=== PATIENT | male | born 1990 | race Caucasian/White ===

== ENCOUNTER 2018-12-04 08:23 | Emergency (ER) | payer SELFPAY ==
[2018-12-04 09:12] LABS: Absolute Lymphocytes (CBC) 1.2 K/uL (0.7-4.9); Eosinophils % 4.4 % (0-4.4); Hematocrit 41.8 % (39.6-49.0); Lymphocytes % 23.2 % (15.3-44.8); MPV 8.1 fL (7.6-11.3); Monocytes % 6.1 % (3.3-12.3); RBC Red Blood Cell Count 4.47 M/uL (4.33-5.43)
[2018-12-04 09:30] LABS: ALT/SGPT 29 U/L (12-78); AST/SGOT 22 U/L (15-37); Albumin 3.9 g/dL (3.4-5.0); Alkaline Phosphatase 61 U/L (45-117); BUN Blood Urea Nitrogen 9 mg/dL (7-18); Bicarbonate 28 mmol/L (21-32); Bilirubin Direct < 0.1 mg/dL (0-0.2); Bilirubin Total 0.2 mg/dL (0.2-1.0); Glucose Level 84 mg/dL (74-106); Lipase 218 U/L (73-393); Potassium 3.7 mmol/L (3.5-5.1); Protein, Total 7.1 g/dL (6.4-8.2); Sodium Level 140 mmol/L (136-145)
[2018-12-04 10:24] LABS: Urine Blood NEGATIVE (NEG); Urine Glucose NEGATIVE (NEG); Urine Protein TRACE (NEG); Urine Specific Gravity 1.025 (1.005-1.030)
--- NOTE | 2018-12-04 11:16 | RAD REPORT ---
EXAM DESCRIPTION: US - Abdomen Exam Limited - 12/04/2018 11:09 am CLINICAL HISTORY: Abdominal pain, epigastric pain COMPARISON: None. FINDINGS: No gallstones, sludge or other abnormalities within the gallbladder lumen. There is no wal l thickening or pericholecystic fluid. Gallbladder appears to be partially contracted. Fasting status of the patient is not known. No common duct stone or biliary tree dilatation identified. IMPRESSION: No gallbladder or biliary tree abnormality identifiable. Gallbladder appears partially contracted. Fasting status of the patient is not known.
--- NOTE | 2018-12-04 12:24 | EDPHYS ---
Physician Documentation [facility] Name: Andi Hernandez Age: 28 yrs Sex: Male : 1990 Arrival Date: 12/04/2018 Time: 08:26 Bed 19 Private MD: ED Physician Fidel Avalos HPI: 12/04 09:00 This 28 yrs old Male presents to ER via Ambulatory with complaints of cp Abdominal Pain, Vomiting/Diarrhea. 09:00 The patient presents with diarrhea. cp 09:00 Onset: The symptoms/episode began/occurred 3 week(s) ago. The symptoms do not radiate. cp Associated signs and symptoms: Pertinent negatives:. The symptoms are described as crampy, intermittent. Severity of pain: in the emergency department the pain has improved markedly. Historical: - Allergies: 08:46 No Known Allergies; ss - Home Meds: 08:46 None [Active]; ss - PMHx: 08:46 ear infections; fractured pelvic ring; Head injury; ss - PSHx: 08:46 hip sx; ss - Immunization history:: Adult Immunizations unknown. - Social history:: Smoking status: Patient uses tobacco products, smokes one pack cigarettes per day. - Ebola Screening: : Patient denies exposure to infectious person Patient denies travel to an Ebola-affected area in the 21 days before illness onset. ROS: 09:05 Constitutional: Negative for body aches, chills, fever, poor PO intake, weight loss. cp 09:05 Eyes: Negative for injury, pain, redness, and discharge. cp 09:05 ENT: Negative for drainage from ear(s), ear pain, sore throat, difficulty swallowing, difficulty handling secretions. 09:05 Cardiovascular: Negative for chest pain, edema, palpitations. 09:05 Respiratory: Negative for cough, shortness of breath, wheezing. 09:05 Abdomen/GI: Positive for diarrhea, Negative for nausea and vomiting, constipation, anorexia, black/tarry stool, rectal bleeding. 09:05 Back: Negative for pain at rest, pain with movement. 09:05 : Negative for urinary symptoms, testicular pain 09:05 Skin: Negative for cellulitis, rash. 09:05 Neuro: Negative for altered mental status, dizziness, headache, weakness. 09:05 All other systems are negative. Exam: 09:15 Head/Face: Normocephalic, atraumatic. cp 09:15 Constitutional: The patient appears in no acute distress, alert, awake, non-diaphoretic, non-toxic, well developed, well nourished. 09:15 Eyes: Periorbital structures: appear normal, Conjunctiva: normal, no exudate, no cp injection, Sclera: no appreciated abnormality, Lids and lashes: appear normal, bilaterally. 09:15 ENT: External ear(s): are unremarkable, Ear canal(s): are normal, clear, TM's: bulging, is not appreciated, bilaterally, dullness, bilaterally, erythema, is not appreciated, bilaterally, Nose: is normal, Mouth: Lips: moist, Oral mucosa: pink and intact, moist, Posterior pharynx: is normal, airway is patent, no erythema, no exudate. 09:15 Neck: ROM/movement: is normal, is supple, without pain, no range of motions limitations, no nuchal rigidity. 09:15 Chest/axilla: Inspection: normal, Palpation: is normal, no crepitus, no tenderness. 09:15 Cardiovascular: Rate: normal, Rhythm: regular. 09:15 Respiratory: the patient does not display signs of respiratory distress, Respirations: normal, no use of accessory muscles, no retractions, no splinting, no tachypnea, labored breathing, is not present, Breath sounds: are clear throughout, no decreased breath sounds, no stridor, no wheezing. 09:15 Abdomen/GI: Inspection: abdomen appears normal, Bowel sounds: active, all quadrants, Palpation: soft, in all quadrants, mild abdominal tenderness, in the epigastric area and right upper quadrant, rebound tenderness, is not appreciated, voluntary guarding, is not appreciated, involuntary guarding, is not appreciated. 09:15 Back: pain, is absent, ROM is normal. 09:15 Skin: no rash present. 09:15 Neuro: Orientation: to person, place \T\ time. Vital Signs: 08:46 BP 123 / 76; Pulse 60; Resp 16; Temp 98.5(TE); Pulse Ox 98% on R/A; Weight 77.11 kg; ss Height 5 ft. 5 in. (165.10 cm); Pain 0/10; 09:25 BP 114 / 69; Pulse 60; Resp 17; Pulse Ox 95% on R/A; tw2 10:21 BP 112 / 91; Pulse 70; Resp 17; Pulse Ox 97% on R/A; tw2 11:16 Pulse 58; Resp 17; Pulse Ox 99% on R/A; tw2 12:02 BP 125 / 82; Pulse 58; Resp 16; Temp 98.9(TE); Pulse Ox 99% on R/A; mh5 12:40 BP 122 / 73; Pulse 68; Resp 17; Pulse Ox 99% on R/A; tw2 08:46 Body Mass Index 28.29 (77.11 kg, 165.10 cm) ss MDM: 08:42 Patient medically screened. cp 12:22 Data reviewed: vital signs, nurses notes, lab test result(s), radiologic studies, cp ultrasound. 12:22 Differential diagnosis: cholecystitis, Cholelithiasis, gastritis, pancreatitis, Peptic cp Ulcer Disease, Perf. Duodenal Ulcer, Perf. Gastric Ulcer. 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 12/04 08:58 Order name: Basic Metabolic Panel 12/04 08:58 Order name: CBC with Diff; Complete Time: 10:48 cp 12/04 08:58 Order name: Creatinine for Radiology; Complete Time: 10:48 12/04 08:58 Order name: Hepatic Function; Complete Time: 10:48 cp 12/04 08:58 Order name: Lipase; Complete Time: 10:48 cp 12/04 08:58 Order name: IV Saline Lock; Complete Time: 09:12 cp 12/04 08:58 Order name: Labs collected and sent; Complete Time: 09:12 cp 12/04 08:58 Order name: Stool Culture 12/04 08:59 Order name: CDIFF 12/04 09:02 Order name: Basic Metabolic Panel; Complete Time: 10:48 EDMS 12/04 09:29 Order name: Urine Dipstick--Ancillary (enter results); Complete Time: 10:48 bd 12/04 10:49 Order name: US Abdomen Limited: RUQ/epigastric cp 12/04 09:27 Order name: Urine Dipstick-Ancillary (obtain specimen); Complete Time: 09:29 tw2 Administered Medications: No medications were administered Disposition: 12/05 07:48 Co-signature as Attending Physician, Fidel Avalos MD I agree with the assessment and kdr plan of care. Disposition: 12/04/18 12:23 Discharged to Home. Impression: Diarrhea, unspecified. - Condition is Stable. - Discharge Instructions: Food Choices to Help Relieve Diarrhea, Adult, Diarrhea, Adult, Form - Excuse from Work, School, or Physical Activity. - Prescriptions for Lomotil 2.5- 0.025 mg Oral Tablet - take 1 tablet by ORAL route every 6 hours As needed; 20 tablet. - Medication Reconciliation Form, Thank You Letter, Antibiotic Education, Prescription Opioid Use, Work release form form. - Follow up: Alex White MD; When: 2 - 3 days; Reason: Recheck today's complaints. - Problem is new. - Symptoms have improved. Signatures: Dispatcher [employer] [facility] Fidel Avalos MD MD [facility] Elin Snider RN RN ss Misha Gates PA PA cp Juhi Martinez, RN RN tw2 Corrections: (The following items were deleted from the chart) 12/04 12:26 10:50 Abdomen With Erect+RAD.RAD.BRZ ordered. [facility] 12:41 12:23 12/04/2018 12:23 Discharged to Home. Impression: Diarrhea, unspecified. Condition tw2 is Stable. Forms are Medication Reconciliation Form, Thank You Letter, Antibiotic Education, Prescription Opioid Use. Follow up: Alex White; When: 2 - 3 days; Reason: Recheck today's complaints. Problem is new. Symptoms have improved. cp
--- NOTE | 2018-12-04 12:24 | ER ---
Nurse's Notes [facility] Name: Andi Hernandez Age: 28 yrs Sex: Male : 1990 Arrival Date: 12/04/2018 Time: 08:26 Bed 19 Private MD: Diagnosis: Diarrhea, unspecified Presentation: 12/04 08:42 Presenting complaint: Patient states: diarrhea x 3 weeks. Transition of care: patient ss was not received from another setting of care. Onset of symptoms was November 13, 2018. Risk Assessment: Do you want to hurt yourself or someone else? Patient reports no desire to harm self or others. Initial Sepsis Screen: Does the patient meet any 2 criteria? No. Patient's initial sepsis screen is negative. Does the patient have a suspected source of infection? No. Patient's initial sepsis screen is negative. Care prior to arrival: None. 08:42 Method Of Arrival: Ambulatory ss 08:42 Acuity: PATRICIA 3 ss Triage Assessment: 11:16 General: Appears in no apparent distress. tw2 Historical: - Allergies: 08:46 No Known Allergies; ss - Home Meds: 08:46 None [Active]; ss - PMHx: 08:46 ear infections; fractured pelvic ring; Head injury; ss - PSHx: 08:46 hip sx; ss - Immunization history:: Adult Immunizations unknown. - Social history:: Smoking status: Patient uses tobacco products, smokes one pack cigarettes per day. - Ebola Screening: : Patient denies exposure to infectious person Patient denies travel to an Ebola-affected area in the 21 days before illness onset. Screenin:49 Abuse screen: Denies threats or abuse. Nutritional screening: No deficits noted. tw2 Tuberculosis screening: No symptoms or risk factors identified. Fall Risk None identified. Assessment: 08:53 General: Appears in no apparent distress. unkempt, Behavior is calm, cooperative, tw2 appropriate for age. Pain: Complains of pain in abdomen. Neuro: Level of Consciousness is awake, alert, obeys commands, Oriented to person, place, time, situation. Cardiovascular: Heart tones S1 S2 Patient's skin is warm and dry. Respiratory: Airway is patent Respiratory effort is even, unlabored, Respiratory pattern is regular, symmetrical, Breath sounds are clear bilaterally. GI: Bowel sounds present X 4 quads. Abd is soft X 4 quads Reports diarrhea, nausea, vomiting. : No signs and/or symptoms were reported regarding the genitourinary system. EENT: No signs and/or symptoms were reported regarding the EENT system. Derm: No signs and/or symptoms reported regarding the dermatologic system. Musculoskeletal: Range of motion: intact in all extremities. 09:24 Reassessment: Patient appears in no apparent distress at this time. No changes from tw2 previously documented assessment. Patient and/or family updated on plan of care and expected duration. Pain level reassessed. Patient is alert, oriented x 3, equal unlabored respirations, skin warm/dry/pink. 10:20 Reassessment: Patient appears in no apparent distress at this time. No changes from tw2 previously documented assessment. Patient and/or family updated on plan of care and expected duration. Pain level reassessed. Patient is alert, oriented x 3, equal unlabored respirations, skin warm/dry/pink. 11:16 Reassessment: Patient appears in no apparent distress at this time. No changes from tw2 previously documented assessment. Patient and/or family updated on plan of care and expected duration. Pain level reassessed. Patient is alert, oriented x 3, equal unlabored respirations, skin warm/dry/pink. 12:40 Reassessment: Patient appears in no apparent distress at this time. No changes from tw2 previously documented assessment. Patient and/or family updated on plan of care and expected duration. Pain level reassessed. Patient is alert, oriented x 3, equal unlabored respirations, skin warm/dry/pink. Vital Signs: 08:46 BP 123 / 76; Pulse 60; Resp 16; Temp 98.5(TE); Pulse Ox 98% on R/A; Weight 77.11 kg; ss Height 5 ft. 5 in. (165.10 cm); Pain 0/10; 09:25 BP 114 / 69; Pulse 60; Resp 17; Pulse Ox 95% on R/A; tw2 10:21 BP 112 / 91; Pulse 70; Resp 17; Pulse Ox 97% on R/A; tw2 11:16 Pulse 58; Resp 17; Pulse Ox 99% on R/A; tw2 12:02 BP 125 / 82; Pulse 58; Resp 16; Temp 98.9(TE); Pulse Ox 99% on R/A; mh5 12:40 BP 122 / 73; Pulse 68; Resp 17; Pulse Ox 99% on R/A; tw2 08:46 Body Mass Index 28.29 (77.11 kg, 165.10 cm) ED Course: 08:26 Patient arrived in ED. mr 08:35 Misha Gates PA is PHCP. cp 08:35 Fidel Avalos MD is Attending Physician. cp 08:40 Bed in low position. Call light in reach. tw2 08:44 Triage completed. ss 08:46 Arm band placed on right wrist. ss 08:49 Juhi Martinez, RENA is Primary Nurse. tw2 09:08 Inserted saline lock: 20 gauge in right antecubital area, using aseptic technique. tw2 Blood collected. 09:29 Ova And Parasites Sent. tw2 09:29 Stool Culture Sent. tw2 09:29 CDIFF Sent. tw2 11:11 US Abdomen Limited: RUQ/epigastric In Process Unspecified. EDMS 12:22 Alex White MD is Referral Physician. cp 12:39 No provider procedures requiring assistance completed. IV discontinued, intact, tw2 bleeding controlled, No redness/swelling at site. Pressure dressing applied. Administered Medications: No medications were administered Outcome: 12:23 Discharge ordered by . cp 12:39 Discharged to home ambulatory. tw2 12:39 Condition: stable 12:39 Discharge instructions given to patient, Instructed on discharge instructions, follow up and referral plans. medication usage, Demonstrated understanding of instructions, follow-up care, medications, Prescriptions given X 1. 12:41 Patient left the ED. tw2 Signatures: Dispatcher [employer] [email or web address] Zakiya Zapata Shelby, RN RN Misha Gates PA PA cp Juhi Martinez, RENA RN 2 Rebecca Lynn [email or web address]
== END 2018-12-04 12:41 | disposition home or self-care (01) ==
LOC: ER 08:23
DX: R19.7 Diarrhea, unspecified (principal); F17.210 Nicotine dependence, cigarettes, uncomplicated
CPT/HCPCS: 36415; 76705; 80048; 80076; 81003; 83690; 85025; 87045; 87046; 87493; 99284